=== PATIENT | female | born 1980 | race Caucasian/White ===

== ENCOUNTER 2018-05-12 09:43 | Day surgery (SDC) | payer BC ==
[~2018-05-12 09:43] MED LIST: PROPOFOL INJ 200 MG/20 ML VIAL IV ONE
[2018-05-12] MEDS ORDERED: PROPOFOL INJ 200 MG/20 ML VIAL IV ONE (10:08)
[2018-05-12 10:56] VITALS: BP 104/61
--- NOTE | 2018-05-12 12:10 | Operative Report ---
Operative Report DATE OF SURGERY: 05/12/18 Operative Report: The risks, benefits and alternatives of the procedure including risks of bleeding, perforation requiring surgery are explained to the patient in detail and informed consent is obtained. Patient is taken back to the endoscopy suite and placed in a left, lateral decubital position. Timeout was called. Propofol medication is administered. A rectal examination is done which did not reveal any masses, tears or fissures. An Olympus videoscope was inserted into the patient's rectum. The scope was then carefully advanced all the way to the cecum. The cecum was identified by the usual anatomical landmarks including the ileocecal valve as well as the appendiceal office. Photodocumentation is obtained. The scope was then sequentially pulled back via the various segments of the colon including the ascending colon, hepatic flexure, transverse colon, splenic flexure, descending colon and finally into the rectosigmoid portions of the colon. Retroflexion maneuver is performed. PREOPERATIVE DIAGNOSIS: Change in bowel habits POSTOPERATIVE DIAGNOSIS: Right-sided colon inflammation status post biopsy rule out collagenous, lymphocytic, microscopic colitis. Diverticulosis. Internal hemorrhoids OPERATION: Colonoscopy with biopsy SURGEON: YOANNA ANTONY ANESTHESIA: LMAC TISSUE REMOVED OR ALTERED: As noted above. COMPLICATIONS: None. ESTIMATED BLOOD LOSS: None. INTRAOPERATIVE FINDINGS: As noted above. PROCEDURE: Patient tolerated the procedure well. No immediate postprocedure complications are noted. Patient discharged in good condition. Discharge date 05/12/2018. Discharge diet: Regular. Discharge activity: Regular. 2-3 week follow-up to discuss findings. Patient is instructed call the office or proceed to the emergency room should there be any further problems or questions. Wait on the pathology.
== END 2018-05-12 11:00 | disposition home or self-care (01) ==
LOC: END 09:43
PROVIDERS: ATTEND Internal Medicine Gastroenterology
DX: K52.9 Noninfective gastroenteritis and colitis, unspecified (principal); K57.30 Diverticulosis of large intestine without perforation or abscess without bleeding; K62.89 Other specified diseases of anus and rectum; K64.8 Other hemorrhoids
CPT/HCPCS: 45380; 88305 ×2; J2704; 811